=== PATIENT | female | born 1950 | race Caucasian/White ===

== ENCOUNTER 2017-07-25 16:46 | Emergency (ER) | payer MEDICARE, OTHER ==
[~2017-07-25] VITALS: Ht 157.5 cm; Wt 78.0 kg
[~2017-07-25 16:46] MED LIST: ADVAIR 250-501 EACH INH; AMBIEN 5 MG TABL5 M1 PO; LISINOPRIL10 MG PO; PREDNISONE 20 M20 M1 PO; PROVENTIL HFA6.7 G1 INH; SINGULAIR 10 MG10 MG PO
[2017-07-25] MEDS ORDERED: METFORMIN HCL500 MG PO (17:08)
[2017-07-25] MEDS ORDERED: LEVOTHYROXINE100 MC1 IV ×2 (17:08)
[2017-07-25] MEDS ORDERED: NORCO 5-325 TA1 EAC1 PO (18:09)
[2017-07-25 18:20] VITALS: BP 152/86
== END 2017-07-25 18:28 | disposition home or self-care (01) ==
LOC: M.ERS 16:46
DX: S93.491A Sprain of other ligament of right ankle, initial encounter (principal); J45.909 Unspecified asthma, uncomplicated; E07.9 Disorder of thyroid, unspecified; Z90.49 Acquired absence of other specified parts of digestive tract; W01.0XXA Fall on same level from slipping, tripping and stumbling without subsequent striking against object, initial encounter; Y93.89 Activity, other specified; Y92.89 Other specified places as the place of occurrence of the external cause; Y99.8 Other external cause status